=== PATIENT | female | born 1970 | race Caucasian/White ===

== ENCOUNTER → 2016-11-04 | Outpatient (CLI) | payer BC ==
[2016-03-15 11:43] VITALS: BP 139/94
[~2016-11-04] MED LIST: AMLO5TAB4 PO; CETI10TA22 PO; DOCU-27 PO; ETHI1TAB12 PO; GABA-586 PO; HYDR-2762 PO; IBUP-1027 PO; METH-38 PO; METH750T2 PO; NAPR220C4 PO; PANT20TA2 PO; VENL150C PO
--- NOTE | 2016-11-04 16:09 | RAD ---
EXAM: Bilateral digital screening mammogram. HISTORY: 46-year-old female presents for screening mammography. TECHNIQUE: Full field digital craniocaudal and mediolateral oblique images of both breasts were obtained. Computer aided detection was applied. COMPARISON: 09/11/2015 FINDINGS: Breast parenchymal density: Level C - Heterogeneously dense. There is no new suspicious mass, suspicious calcification or region of architectural distortion. There is stable increased fibroglandular density within the upper outer quadrant of the left breast. IMPRESSION: BI-RADS Category 2: Benign finding(s). Annual mammography is recommended. PQRS compliance statement: Patient information was entered into a reminder system with a target due date in one year for the next mammogram. Note is made that dense breast parenchyma limits the sensitivity of mammography. Mammography is a sensitive method for finding small breast cancers, but it does not detect them all and is not a substitute for careful clinical examination. A negative mammogram does not negate a clinically suspicious finding and should not result in delay in biopsying a clinically suspicious abnormality. "Our facility is accredited by the [employer] Mammography [employer]."
== END | disposition home or self-care (01) ==
LOC: MAMMO 13:14
PROVIDERS: ATTEND Obstetrics & Gynecology
DX: Z12.31 Encounter for screening mammogram for malignant neoplasm of breast (principal)
CPT/HCPCS: G0202; 77067